=== PATIENT | male | born 2000 ===

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

== ENCOUNTER 2021-08-26 19:10 | Outpatient (REF) | payer MEDICAID, SELFPAY ==
[2021-08-28 14:37] LABS: Chlamydia Result Negative (Negative); GC Result Negative (Negative)
== END 2021-08-26 19:11 | disposition home or self-care (01) ==
LOC: NCHCN 19:10
PROVIDERS: PCP Nurse Practitioner Family; Visit Provider Nurse Practitioner Family
DX: Z11.3 Encounter for screening for infections with a predominantly sexual mode of transmission (principal); F41.8 Other specified anxiety disorders; Z00.00 Encounter for general adult medical examination without abnormal findings
CPT/HCPCS: 87491; 87591